=== PATIENT | female | born 1990 | race Caucasian/White ===

== ENCOUNTER 2017-03-05 16:24 | Emergency (ER) | payer MEDICAID ==
[2017-03-05 16:34] VITALS: PULSE 87; TEMP 98.9; O2SAT 100
[2017-03-05] MEDS ORDERED: Lactated Ringer's 1,000 ML IV SCH (17:15)
--- NOTE | 2017-03-05 17:35 | ED PDOC ---
HPI:Nausea, Vomiting, Diarrhea Time Seen by Provider: 03/05/17 16:31 Chief Complaint (Nursing): Abdominal Pain Chief Complaint (Provider): at 10 weeks, nauseous History Per: Patient History/Exam Limitations: no limitations Onset/Duration Of Symptoms: Days Current Symptoms Are (Timing): Still Present Additional Complaint(s): Pt states she has been nauseous for 2 weeks. Pt saw her OB last week and was given reglan. Pt states she does not think it is helping. Pt denies abdominal pain, vaginal bleeding. Pt states she has been having white discharge for 2 weeks but did not tell her OB. States they did an US last week and everything was normal. States they also did labs but no pelvic exam. Past Medical History Reviewed: Historical Data, Nursing Documentation, Vital Signs Vital Signs: Last Vital Signs Temp 98.9 F 03/05/17 16:29 Pulse 87 03/05/17 16:29 Resp 22 03/05/17 16:29 BP 115/63 03/05/17 16:29 Pulse Ox 100 03/05/17 16:29 - Medical History PMH: No Chronic Diseases - Surgical History Surgical History: No Surg Hx - Family History Family History: States: Unknown Family Hx - Living Arrangements Living Arrangements: With Family - Social History Current smoker - smoking cessation education provided: No Alcohol: None Drugs: Denies - Home Medications Home Medications: Ambulatory Orders Medication Instructions Recorded Doxylamine/Pyridoxine HCl 2 each PO QPM #20 tablet. 03/05/17 [Kay Monsalve 10-10 mg Tablet] - Allergies Allergies/Adverse Reactions: Allergies Allergy/AdvReac Type Severity Reaction Status Date / Time No Known Allergies Allergy Verified 03/05/17 17:02 Review of Systems ROS Statement: Except As Marked, All Systems Reviewed And Found Negative Gastrointestinal: Positive for: Nausea. Negative for: Vomiting, Abdominal Pain Genitourinary Female: Positive for: Vaginal Discharge. Negative for: Dysuria, Vaginal Bleeding, Pelvic Pain Physical Exam - Reviewed Nursing Documentation Reviewed: Yes Vital Signs Reviewed: Yes - Physical Exam Appears: Positive for: Well, Non-toxic, No Acute Distress Head Exam: Positive for: ATRAUMATIC, NORMAL INSPECTION, NORMOCEPHALIC Skin: Positive for: Normal Color, Warm, DRY Eye Exam: Positive for: Normal appearance ENT: Positive for: Normal ENT Inspection Neck: Positive for: Normal, Painless ROM Cardiovascular/Chest: Positive for: Regular Rate, Rhythm Respiratory: Positive for: Normal Breath Sounds. Negative for: Accessory Muscle Use Gastrointestinal/Abdominal: Positive for: Normal Exam, Bowel Sounds, Soft Pelvic Exam: Positive for: External Exam Normal, Speculum Exam Normal, Bimanual Exam Normal. Negative for: Discharge Back: Positive for: Normal Inspection Extremity: Positive for: Normal ROM Neurologic/Psych: Positive for: Alert, Oriented - Laboratory Results Result Diagrams: 03/05/17 18:00 03/05/17 18:00 - ECG O2 Sat by Pulse Oximetry: 100 Disposition - Clinical Impression Clinical Impression: Vomiting affecting - Patient ED Disposition Is Patient to be Admitted: No Counseled Patient/Family Regarding: Diagnosis, Need For Followup, Rx Given - Disposition Disposition: Routine/Home Disposition Time: 19:43 Condition: GOOD Prescriptions: Doxylamine/Pyridoxine HCl [Kay Monsalve 10-10 mg Tablet] 2 each PO QPM #20 tablet. Instructions: Hyperemesis Gravidarum (ED)
[2017-03-05 18:06] LABS: HEMATOCRIT 35.8 % (34.0-47.0); MEAN CELL VOLUME 91.2 fl (81.0-99.0); MEAN CORPUSCULAR HEMOGLOBIN 30.7 pg (27.0-31.0); MEAN CORPUSCULAR HGB CONC 33.7 g/dL (33.0-37.0); RED CELL DISTRIBUTION WIDTH 13.4 % (11.5-14.5); WHITE BLOOD COUNT 7.3 K/uL (4.8-10.8)
[2017-03-05 18:16] LABS: ALB/GLOB RATIO 1.2 (1.0-2.1); ALKALINE PHOSPHATASE 54 U/L (38-126); ALT/SGPT 21 U/L (9-52); AST/SGOT 24 U/L (14-36); BILIRUBIN,TOTAL 0.2 mg/dl (0.2-1.3); BLOOD UREA NITROGEN 7 mg/dl (7-17); CALCIUM 8.9 mg/dL (8.4-10.2); CARBON DIOXIDE 20 mmol/L (22-30); CHLORIDE 103 mmol/L (98-107); GFR AFRICAN-AMERICAN > 60; GLUCOSE,RANDOM 71 mg/dL (65-105); POTASSIUM 3.8 MMOL/L (3.6-5.0); SODIUM 136 mmol/l (132-148); TOTAL PROTEIN 6.9 G/DL (6.3-8.2)
[2017-03-05 19:57] VITALS: BP 125/80; RESP 16
== END 2017-03-05 19:57 | disposition home or self-care (01) ==
LOC: H.ER 16:24
DX: O21.9 Vomiting of pregnancy, unspecified (principal)

== ENCOUNTER 2017-04-08 14:41 | Emergency (ER) | payer MEDICAID ==
[2017-04-08 15:21] VITALS: BP 103/58; PULSE 92; RESP 18; TEMP 98.2; O2SAT 98
--- NOTE | 2017-04-08 16:11 | ED PDOC ---
HPI: Abdomen Time Seen by Provider: 04/08/17 15:25 Chief Complaint (Nursing): GI Problem Chief Complaint (Provider): , vomiting History Per: Patient Additional Complaint(s): Patient is currently 15 weeks and presents to emergency department with persistent vomiting and nausea for the past several weeks. Patient was started on Diclegis by her light cleaner but she states that she is still vomiting despite taking this medication. She denies fever or chills. She denies any abdominal pain or vaginal bleeding at this time. Patient does have slight dysuria for the past 2 days. Past Medical History Reviewed: Historical Data, Nursing Documentation, Vital Signs Vital Signs: Last Vital Signs Temp 98.2 F 04/08/17 15:18 Pulse 92 H 04/08/17 15:18 Resp 18 04/08/17 15:18 BP 103/58 L 04/08/17 15:18 Pulse Ox 98 04/08/17 18:19 - Medical History Other PMH: - 1 elective , 1 spontaneous miscarriage - Surgical History Other surgeries: elective - Family History Family History: States: No Known Family Hx - Living Arrangements Living Arrangements: With Family - Social History Current smoker - smoking cessation education provided: No Alcohol: None Drugs: Denies - Home Medications Home Medications: Ambulatory Orders Medication Instructions Recorded Doxylamine/Pyridoxine HCl (B6) 2 each PO QPM #20 tablet. 03/05/17 [Zaygis Dr 10-10 mg Tablet] Ondansetron [Zofran Odt] 4 mg PO ASDIR PRN #10 odt 04/08/17 - Allergies Allergies/Adverse Reactions: Allergies Allergy/AdvReac Type Severity Reaction Status Date / Time No Known Allergies Allergy Verified 03/05/17 17:02 Review of Systems ROS Statement: Except As Marked, All Systems Reviewed And Found Negative Constitutional: Negative for: Fever Cardiovascular: Negative for: Chest Pain Respiratory: Negative for: Cough Gastrointestinal: Positive for: Nausea, Vomiting, Abdominal Pain. Negative for : Diarrhea, Constipation Genitourinary Female: Positive for: Dysuria. Negative for: Hematuria, Vaginal Discharge, Vaginal Bleeding, Pelvic Pain Physical Exam - Reviewed Nursing Documentation Reviewed: Yes Vital Signs Reviewed: Yes - Physical Exam Appears: Positive for: Well, Non-toxic, No Acute Distress Head Exam: Positive for: ATRAUMATIC, NORMAL INSPECTION Skin: Negative for: Rash Eye Exam: Positive for: Normal appearance Cardiovascular/Chest: Positive for: Regular Rate, Rhythm Respiratory: Positive for: Normal Breath Sounds. Negative for: Respiratory Distress Gastrointestinal/Abdominal: Positive for: Soft. Negative for: Tenderness, Distended, Guarding, Rebound Back: Negative for: L CVA Tenderness, R CVA Tenderness Extremity: Negative for: Pedal Edema Neurologic/Psych: Positive for: Alert, Oriented - Laboratory Results Result Diagrams: 04/08/17 16:00 04/08/17 16:30 Urine POC: Positive - ECG O2 Sat by Pulse Oximetry: 98 Pulse Ox Interpretation: Normal Medical Decision Making Medical Decision Making: Impression: Hyperemesis gravidarum Plan: CBC CMP UA Lipase IVF IV zofran No UTI noted, urine culture sent. Patient feels better after fluids and Zofran were given. Patient was able to tolerate juice and water without further emesis in ED. Prescription given for Zofran. Patient has follow-up this coming Thursday with her OB at [facility]. Disposition - Clinical Impression Clinical Impression: Hyperemesis gravidarum - Patient ED Disposition Is Patient to be Admitted: No Counseled Patient/Family Regarding: Studies Performed, Diagnosis, Need For Followup, Rx Given - Disposition Referrals: [facility] [Outside] Disposition: Routine/Home Disposition Time: 18:18 Condition: IMPROVED Additional Instructions: Prescription meds as directed as needed for nausea. Follow-up as scheduled this coming Thursday with your OB. Prescriptions: Ondansetron [Zofran Odt] 4 mg PO ASDIR PRN #10 odt PRN Reason: Nausea/Vomiting Instructions: Hyperemesis Gravidarum (ED) Results - Vital Signs Recent Vital Signs: Last Vital Signs Temp 98.2 F 04/08/17 15:18 Pulse 92 H 04/08/17 15:18 Resp 18 04/08/17 15:18 BP 103/58 L 04/08/17 15:18 Pulse Ox 98 04/08/17 18:19 - Labs Result Diagrams: 04/08/17 16:00 04/08/17 16:30 Labs: Laboratory Results - last 24 hr 04/08/17 04/08/17 04/08/17 16:00 16:20 16:30 WBC 7.0 RBC 3.88 Hgb 12.1 Hct 35.2 MCV 90.8 MCH 31.1 H MCHC 34.3 RDW 13.8 Plt Count 228 MPV 8.5 Neut % (Auto) 77.3 H Lymph % (Auto) 16.8 L [place] % (Auto) 5.0 Eos % (Auto) 0.5 Baso % (Auto) 0.4 Neut # 5.4 Lymph # 1.2 [place] # 0.4 Eos # 0.0 Baso # 0.0 Sodium 136 Potassium 3.6 Chloride 103 Carbon Dioxide 21 L Anion Gap 16 BUN 7 Creatinine 0.4 L Est GFR ( Amer) > 60 Est GFR (Non-Af Amer) > 60 Random Glucose 102 Calcium 9.1 Total Bilirubin 0.2 AST 28 ALT 22 Alkaline Phosphatase 42 Total Protein 6.8 Albumin 3.9 Globulin 2.8 Albumin/Globulin Ratio 1.4 Lipase 31 Urine Color Yellow Urine Clarity Cloudy Urine pH 8.0 Ur Specific [place] 1.026 Urine Protein 30 Urine Glucose (UA) Neg Urine Ketones Negative Urine Blood Negative Urine Nitrate Negative Urine Bilirubin Negative Urine Urobilinogen 0.2-1.0 Ur Leukocyte Esterase Neg Ur Squamous Epith Cells 6 H Amorphous Sediment Occ H
[2017-04-08] MEDS ORDERED: Sodium Chloride 0.9% 1,000 ML IV STA (16:12)
[2017-04-08 16:41] LABS: URINE BILIRUBIN NEGATIVE (NEGATIVE); URINE BLOOD NEGATIVE (NEGATIVE); URINE COLOR YELLOW (YELLOW); URINE GLUCOSE (UA) NEG (Normal); URINE KETONE NEGATIVE (NEGATIVE); URINE LEUKOCYTE ESTERASE NEG Leu/uL (Negative); URINE PROTEIN 30 mg/dL (NEGATIVE); URINE UROBILINOGEN 0.2-1.0 mg/dL (0.2-1.0)
[2017-04-08 16:57] LABS: BASO % 0.4 % (0.0-2.0); EOS % 0.5 % (0.0-4.0); HEMATOCRIT 35.2 % (34.0-47.0); LYMPH # 1.2 K/uL (1.0-4.3); LYMPH % 16.8 % (20.0-40.0); MEAN CELL VOLUME 90.8 fl (81.0-99.0); MEAN CORPUSCULAR HEMOGLOBIN 31.1 pg (27.0-31.0); MEAN CORPUSCULAR HGB CONC 34.3 g/dL (33.0-37.0); MEAN PLATELET VOLUME 8.5 fl (7.2-11.7); MONO # 0.4 K/uL (0.0-0.8); NEUT # 5.4 K/uL (1.8-7.0); NEUT % 77.3 % (50.0-75.0); NRBC % 0.1 % (0.0-0.0); RED CELL DISTRIBUTION WIDTH 13.8 % (11.5-14.5)
[2017-04-08 17:01] LABS: ALB/GLOB RATIO 1.4 (1.0-2.1); ALKALINE PHOSPHATASE 42 U/L (38-126); ALT/SGPT 22 U/L (9-52); AST/SGOT 28 U/L (14-36); BILIRUBIN,TOTAL 0.2 mg/dl (0.2-1.3); BLOOD UREA NITROGEN 7 mg/dl (7-17); CALCIUM 9.1 mg/dL (8.4-10.2); CARBON DIOXIDE 21 mmol/L (22-30); CHLORIDE 103 mmol/L (98-107); GFR AFRICAN-AMERICAN > 60; GLUCOSE,RANDOM 102 mg/dL (65-105); LIPASE 31 U/L (23-300); POTASSIUM 3.6 MMOL/L (3.6-5.0); SODIUM 136 mmol/l (132-148); TOTAL PROTEIN 6.8 G/DL (6.3-8.2)
== END 2017-04-08 18:49 | disposition home or self-care (01) ==
LOC: H.ER 14:41
DX: O21.1 Hyperemesis gravidarum with metabolic disturbance (principal); O23.40 Unspecified infection of urinary tract in pregnancy, unspecified trimester

== ENCOUNTER 2017-07-16 11:23 | Emergency (ER) | payer MEDICAID ==
[2017-07-16 18:56] VITALS: BP 88/57; PULSE 82
--- NOTE | 2017-07-17 09:01 | OBHP ---
Datetime: 07/16/2017 08:56 IP Adm Impression: , intrauterine ; No Active Labor; Intact Membranes IP Chief Complaint Other: spotting IP Admit Plan: Observation/Evaluation; Discharge home Admit Comment, IP Provider: 27-year-old at 30 weeks gestational age presents to OB ED complain ing of spotting. Patient denies any gross vaginal bleeding, leakage of fluids, contractions. Patient reports good movement. Patient reports that she is taking antibiotics now for urinary tract inf ection that was diagnosed a few days ago. Patient denies any urinary symptoms at this time. Patient s tates that the spotting was only seen when urinating. Otherwise, patient without complaints. records reviewed. Past medical history none Past surgical history none Medications vitamins No known drug allergies Obstetrical history Social history no tobacco, no alcohol, no drugs Physical exam: Deferred a physical exam findings Assessment: 27-year-old at 30 weeks gestational age with spotting with urinating. Symptoms likely due to current urinary tract infection which is improving with treatment already prescribed. No evidence of labor at this time. Both maternal well-being and well-being reassuring at this time. Plan: Patient has follow-up scheduled at clinic. Discussed plan with patient and all patient questions a nswered. Patient discharged home. Pelvic Type - PN: Adequate Extremities - PN: Normal Abdomen - PN: Normal Back - PN: Normal Breast - PN: Normal Lungs - PN: Normal Heart - PN: Normal Thyroid - PN: Normal Neurologic - PN: Normal HEENT - PN: Normal General - PN: Normal FHR - Baseline A Provider: 120s-130s Membranes, Provider: Intact Contraction Comments Provider: none Comments, ACOG Physical Exam: Cervix long, closed, posterior No blood, no fluid, no discharge Abdomen soft, nontender, nondistended, gravid, no rebound, no guarding, no CVA tenderness bilatera lly. Pool Provider: Negative IP Hx Assessment: The History has been Reviewed and is Current Vital Signs Provider: Reviewed; Within Normal Limits NICHD Variability Prov Fetus A: Moderate 6-25bpm NICHD Accel Fetus A IP Provider: [id number] FHR Category Provider Fetus A: Category I NICHD Decel Fetus A IP Provider: None Dilatation, Provider: 0 Effacement, Provider: 0 Station, Provider: -4 Genitourinary Exam: Normal DTRs - PN: Normal
== END 2017-07-16 13:20 | disposition home or self-care (01) ==
LOC: H.EROB2 11:23
DX: O47.03 False labor before 37 completed weeks of gestation, third trimester (principal); Z3A.30 30 weeks gestation of pregnancy; O23.43 Unspecified infection of urinary tract in pregnancy, third trimester